=== PATIENT | male | born 2000 | race Caucasian/White ===

== ENCOUNTER 2022-12-30 07:42 | Emergency (ER) | payer BC ==
[~2022-12-30] VITALS: Ht 167.6 cm; Wt 59.0 kg
[2022-12-30 08:06] VITALS: BP 119/70
[2022-12-30] MEDS ORDERED: KETOROLAC 60 MG/2 ML VIAL IM ONE (08:10)
--- NOTE | 2022-12-30 08:25 | NUR ---
PT C/O RT FOOT PAIN SINCE THIS AM RADIATING TO HIP. HX OF SCLERODERMA. SAFETY MAINTAINED.
[2022-12-30] MEDS ORDERED: IBUP-2213 PO (09:18)
[2022-12-30] MEDS ORDERED: CEPH-588 PO (09:18)
[2022-12-30] MEDS ORDERED: ACET-8905 PO (09:18)
[2022-12-30 09:27] VITALS: BP 110/78
--- NOTE | 2022-12-30 09:29 | NUR ---
Patient discharged with v/s stable. Written and verbal after care instructions given and explained. Patient alert, oriented and verbalized understanding of instructions. Ambulatory with steady gait. All questions addressed prior to discharge. ID band removed. Patient advised to follow up with PMD. Rx of IBUPROFEN, CEPHALEXIN, NORCO given. Patient educated on indication of medication including possible reaction and side effects. Opportunity to ask questions provided and answered.
--- NOTE | 2022-12-30 09:31 | NUR ---
The patient's care was reviewed and supervised by [place] 05 RUBEN, RN.
== END 2022-12-30 09:27 | disposition home or self-care (01) ==
LOC: MED 07:42
DX: M79.671 Pain in right foot (principal); F12.90 Cannabis use, unspecified, uncomplicated
CPT/HCPCS: 96372; 99283; J1885